=== PATIENT | male | born 1955 | race Caucasian/White ===

== ENCOUNTER 2025-01-24 10:07 | Outpatient (CLI) | payer MEDICARE, SELFPAY ==
--- NOTE | 2025-01-24 10:15 | CRLHL7_ITS ---
For Patients: As a result of the Century Cures Act, medical imaging exams and procedure reports are released immediately into your electronic medical record. You may view this report before your referring provider. If you have questions, please contact your health care provider. Indication: Right hip pain Comparison: 01/14/2025 Procedure : Informed consent was obtained. The site was marked. Time-out was performed. The skin of the right hip was cleansed with ChloraPrep. A sterile drape was placed. 8 cc of 1 percent lidocaine was administered for superficial anesthesia. Subsequently a 22 gauge spinal needle was introduced into the right hip joint under intermittent fluoroscopic guidance. Injection of 2 cc nonionic Omnipaque 240 contrast confirmed intra-articular location. Subsequently 7 cc 1 percent lidocaine and 2 cc 40 milligram/cc Depo-Medrol then injected into the right hip joint. The needle was removed and hemostasis achieved with direct pressure. A dressing was placed. The patient tolerated the procedure well without immediate complication. Total fluoroscopy time 35 seconds. Impression: Successful fluoroscopically guided right hip injection with 80 milligrams of Depo-Medrol. Dictated by Alex Fu MD @ 01/24/2025 11:20:24 AM (Electronically Signed)
--- OUTSIDE RECORDS SUMMARY | 2025-01-25 00:51 | XMS_ITS | Clinical Summary ---
Author Organization [facility] Address [address] [place] [address] Care Team Providers Care Management Accounts Manager Name Role Phone Corby Sandoval MD Primary Care Provider Allergies Active Allergy Reactions Criticality Noted Date Comments Hydrochlorothiazide Hyponatremia 06/13/2019 Medications triamcinolone 0.5% (ARISTOCORT) 0.5 % creamIndications :Dyshidrotic eczema Apply topically to affected area(s) two times daily. 30 g 4 2 Active lisinopriL (PRINIVIL; ZESTRIL) 40 mg tabletIndication s:HTN (hypertension),E ssential hypertension Take 1 Tablet (40 mg) by mouth once daily. 90 Tablet 3 4 Active lovastatin (MEVACOR) 40 mg tabletIndication s:HTN (hypertension),E ssential hypertension Take 2 Tablets (80 mg) by mouth at bedtime. 180 Tablet 3 4 Active metoprolol succinate (TOPROL XL) 50 mg sustained-releas e tabletIndication s:HTN (hypertension) Take 1 Tablet (50 mg) by mouth once daily. 90 Tablet 3 4 Active sildenafil citrate (VIAGRA) 100 mg tabletIndication s:Essential hypertension,Ere ctile dysfunction, unspecified erectile dysfunction type TAKE 1 TABLET BY MOUTH ONCE DAILY IF NEEDED FOR ERECTILE DYSFUNCTION TAKE 30 MINUTES TO 4 HOURS BEFORE SEXUAL ACTIVITY MAX 100MG PER DAY 10 Tablet 6 4 Active amLODIPine (NORVASC) 10 mg tabletIndication s:HTN (hypertension) Take 1 Tablet (10 mg) by mouth once daily. 90 Tablet 3 5 Active Active Problems Problem Noted Date Diagnosed Date Obesity, morbid 07/02/2022 AAA (abdominal aortic aneurysm) 06/07/2021 Overview (07/05/2021): 3.1 cm repeat Ultrasound ini 3 years. Colon polyps 03/20/2013 Unspecified essential hypertension 04/13/2007 Other and unspecified hyperlipidemia 04/13/2007 Prostate CA Prostate CA Family history of colonic polyps Immunizations Immunization Administration Dates Next Due COVID-19 VACCINE SPIKEVAX (M ODERNA 50MCG/0.5ML) 12YO+ PFS 08/06/2024,08/15/2023 COVID-19 vaccine ([employer] NTech 30mcg/0.3mL) 12YO+ BIVALENT PF, MDV 06/27/2022 COVID-19 vaccine ([employer] NTech 30mcg/0.3mL) PF, MDV 06/22/2021 Influenza RIV4 (Age 18+ Years) PRESERV FREE 05/07 Influenza, IIV4 05/13/2020 Influenza, Inactivated AIIV4 (Age 65+ Years) Preserv Free 08/15/2023,06/27/2022,06/22/2021 Influenza, Inactivated IIV3 (Age 65+ Years) Preserv Free 08/06/2024 Pneumococcal Conj 20-valent (Prevnar 20) 024 Pneumococcal conj 13-Valent (Prevnar 13) 021 Td (Age >=7 Years) 11/08/1993 Tdap 07/14/2017,04/13/2007 Zoster (Shingrix-RZV, recombinant) 07/13/2020, Zoster (Zostavax-ZVL, live) 07/13/2016 Family History Medical History Relation Name Comments Cancer Brother Cancer-prostate Father in his 70's Heart Disease Father Hypertension Father Stroke Maternal Grandmother Osteoporosis Mother Stroke Mother Heart Disease Paternal Uncle Relation Name Status Comments Brother Father Maternal Grandmother Mother Paternal Uncle Social History Tobacco Use Types Packs/Day Years Used Date Smoking Tobacco: Former Cigarettes 1 20 0 01/29/1986 - 01/29/2006 Smokeless Tobacco: Former Chew Tobacco Cessation:Counseling Given: Not Answered Alcohol Use Standard Drinks/Week Comments Yes 0 (1 standard drink = 0.6 oz pur e alcohol) weekends PHQ-2 Answer Date Recorded PHQ-2 TOTAL SCORE 0 08/06/2024 Social Connections Answer Date Recorded Do you often feel lonely or isolated from those around you? 0 08/27/2024 Financial Resource Strain Answer Date R ecorded Difficulty of Paying Living Expenses 3 08/27/2024 Difficulty of Paying Living Expenses Not on file 08/27/2024 Food Insecurity Answer Date Recorded Do you worry your food will run out before you are able to buy more? 1 08/27/2024 Transportation Needs Answer Date Record ed Does lack of transportation keep you from medica l appointments? 1 08/27/2024 Does lack of transportation keep you from work, meetings or getting things that you need? 1 08/27/2024 Housing Stability Answer Date Recorded What is your housing situation today? 1 08/27/2024 Interpersonal Safety Answer Date Record ed Are you being hit, kicked, p ushed or yelled at (see row info)? No 08/26/2024 Interpersonal Safety Abuse 12 - 18 Not on file 08/26/2024 Interpersonal Safety Ambulatory Vulnerability No t on file 08/26/2024 Utilities Answer Date Recorded Do you have trouble paying f or utilities (for example, heat, electricity, water, phone)? 1 08/27/2024 Sex and Gender Information Value Date Recorded Sex Assigned at Not on file Legal Sex Male 5:23 AM PRACTICE CLINICIAN Gender Identity Not on file Sexual Orientation Not on file Occupation Industry Job Start Date Job End Date Not on file Not on file Not on file Not on file Obstetrics History Last Filed Vital Signs Vital Sign Reading Time Taken Comments Blood Pressure 162/88 08/28/2024 11:26 AM PRACTICE CLINICIAN Pulse 60 08/28/2024 11:24 AM PRACTICE CLINICIAN Temperature 36.8 C (98.3 F) 08/28/2024 11:24 AM PRACTICE CLINICIAN Respiratory Rate 16 08/26/2024 6:43 PM PRACTICE CLINICIAN Oxygen Saturation 97% 08/28/2024 11:24 AM PRACTICE CLINICIAN Inhaled Oxygen Concentration - - Weight 118.4 kg (261 lb) 08/28/2024 11:24 AM PRACTICE CLINICIAN Height 170.2 cm (5' 7) 08/28/2024 11:24 AM PRACTICE CLINICIAN Body Mass Index 40.88 08/28/2024 11:24 AM PRACTICE CLINICIAN Plan of Treatment Health Maintenance Due Date Last Done Comments RSV vaccine for adults or (1 - Risk 60-74 years 1-dose series) 2016 COVID-19 vaccine series ( season) 2025 08/06/2024, 08/15/2023, 06/27/2022, Additional history exists Depression screening for age 12+ 08/06/2025 08/06/2024, 08/15/2023, 06/27/2022, Additional history exists Medicare Wellness for age 65+ 08/07/2025 08/06/2024 BMI (ht and wt on same day) for age 18+ 08/28/2025 08/28/2024, 08/06/2024, 08/15/2023, Additional history exists Tetanus booster 07/14/2027 07/14/2017, 02/2007, 11/08/1993 Colonoscopy through age 75 05/31/202805/31, 06/13/2018, 06/06/2013, Additional history exists Lipids for age 45-75 08/06/2029 08/06/2024, 08/15/2023, 06/27/2022, Additional history exists Hepatitis C screening for age 18-79 Completed 07/23/2013 Tdap Completed 07/14/2017, 04/13/2007 Zoster (shingles) series for age 50+ Completed 07/13/2020, 05/13/2020, 07/13/2016 AAA screening age 65-74 Completed 06/30/2021 Pneumococcal series for age 50+ Completed 08/15/2023, 06/22/2021 Influenza Vaccine Completed 08/06/2024, , 06/27/2022, Additional history exists Hepatitis B series for 19+ Aged Out N o longer eligible based on patient's age to complete this topic Procedures Procedure Name Priority Date/Time Associated Diagnosis Comments LIPID PANEL W REFLEX MEASURED LDL Routine 08/06/2024 3:03 PM PRACTICE CLINICIAN Mixed hyperlipidemia COLONOSCOPY 05/31/2023 10:29 AM CDT US ABD AORTA SCREENING Routine 06/30/2021 8:10 AM PRACTICE CLINICIAN Screening for AAA (abdominal aortic aneurysm) ANTI HCV Routine 07/23/2013 9:11 AM PRACTICE CLINICIAN Need for hepatitis C screening test from Last 3 Months or Most Recently Relevant to Health Maintenance Results * (ABNORMAL) LIPID PANEL W REFLEX MEASURED LDL (08/06/2024 3:03 PM PRACTICE CLINICIAN) CHOLESTEROL, TOTAL 193 <200 mg/dL [facility] HDL CHOLESTEROL 65 > OR = 40 mg/dL [facility] TRIGLYCERIDES 116 <150 mg/dL [facility] LDL-CHOLESTEROL 107(H) mg/dL (calc) [facility] Comment: Reference range: <100 Desirable range <100 mg/dL for primary prevention; <70 mg/dL for patients with CHD or diabetic patients with > or = 2 CHD risk factors. LDL-C is now calculated using the Elder-Kumar calculation, which is a validated novel method providing better accuracy than the Friedewald equation in the estimation of LDL-C. Elder SS et al. BRIAN. 2013;310(19): 2631-4751 (http://education.Set.fm/faq/SVF696) CHOL/HDLC RATIO 3.0 <5.0 (calc) [facility] NON HDL CHOLESTEROL 128 <130 mg/dL (calc) [facility] Comment: For patients with diabetes plus 1 major ASCVD risk factor, treating to a non-HDL-C goal of <100 mg/dL (LDL-C of <70 mg/dL) is considered a therapeutic option. Blood BLOOD SPECIMEN / Unknown 08/06/2024 3:03 PM PRACTICE CLINICIAN 08/06/2024 3:03 PM PRACTICE CLINICIAN Narrative [facility] - 08/07/2024 3:50 AM PRACTICE CLINICIAN FASTING:YES FASTING: YES us Corby Sandoval MD CHEMISTRY Final R esult Electron Database [facility] [address] [place] [address], [facility] [address] [place] [address] * COLONOSCOPY (05/31/2023 10:29 AM CDT) 05/31/2023 10:2 9 AM CDT Narrative Transcriptions Opal Culver DO - 05/31/2023 3:08 PM CDT Patient Name: Arnel Hammond Procedure Date: 05/31/2023 Gender: Male Date of : 1955 Admit Type: Ambulatory Procedure: Colonoscopy Proceduralist: Opal Culver MD Referring MD: Corby Sandoval MD Indications/Pre-Op Diagnosis: High risk colon cancer surveillance:Personal history of colonic polyps Medications: Propofol per Anesthesia, MonitoredAnesthesia Care Procedure Description: The patient had risks, benefits and alternatives explained to andgave informed consent. The patient had a stable cardiopulmonary status and judged an adequate candidate for conscious sedation. The endoscope [id number] was passed through the anus andadvanced to the cecum, identified by appendiceal orifice and ileocecal valve.The colonoscopy was performed without difficulty. The patient toleratedthe procedure well. The quality of the bowel preparation was excellent.The ileocecal valve, appendiceal orifice, and rectum were photographed. Complications: No immediate complications. Estimated blood loss: Minimal. Estimated Blood Loss & Specimen: Estimated blood loss was minimal. Specimen collected - Yes and sent to Laboratory Findings: Hemorrhoids were found on perianal exam. A 3 mm polyp was found in the descending colon. The polyp wassessile. The polyp was removed with a hot biopsy forceps. Resection andretrieval were complete. Verification of patient identification for thespecimen was done. Estimated blood loss was minimal. A 7 mm polyp was found in the sigmoid colon. The polyp wassemi-sessile. The polyp was removed with a hot snare. Resection and retrieval were complete. Verification of patient identification for the specimen was done. Estimated blood loss was minimal. A 4 mm polyp was found in the recto-sigmoid colon. The polyp was sessile. The polyp was removed with a hot biopsy forceps. Resectionand retrieval were complete. Verification of patient identification forthe specimen was done. Estimated blood loss was minimal. A few medium-mouthed and small-mouthed diverticula were found in the sigmoid colon. Non-bleeding internal hemorrhoids were found during endoscopy. The hemorrhoids were mild and Grade II (internal hemorrhoids thatprolapse but reduce spontaneously). The exam was otherwise without abnormality. Impressions/Post-Op Diagnosis: - Hemorrhoids found on perianal exam. - One 3 mm polyp in the descending colon, removed with a hot biopsy forceps. Resected and retrieved. - One 7 mm polyp in the sigmoid colon, removed with a hot snare. Resected and retrieved. - One 4 mm polyp at the recto-sigmoid colon, removed with a hotbiopsy forceps. Resected and retrieved. - Diverticulosis in the sigmoid colon. - Non-bleeding internal hemorrhoids. - The examination was otherwise normal. Recommendation: - Patient has a contact number available for emergencies. The signsand symptoms of potential delayed complications were discussed with the patient. Return to normal activities tomorrow. Written discharge instructions were provided to the patient. - Discharge patient to home (ambulatory). - Resume previous diet. - Continue present medications. - Await pathology results. - Repeat colonoscopy in 5 years for surveillance based on pathology results. Opal Culver MD 05/31/2023 3:08:12 PM This report has been signed electronically. Note Initiated On: 05/31/2023 10:29 AM us Opal Culver DO PROCEDURE ORD Final Res ult * US ABD AORTA SCREENING [[id number]] (06/30/2021 8:10 AM PRACTICE CLINICIAN) Anatomical Region Laterality Modality Abdomen, AORTA Ultrasound Impressions 06/30/2021 1:41 PM PRACTICE CLINICIAN Suprarenal abdominal aortic aneurysm measuring up to 3.1 cm. Chidi Navarro M.D. [email or web address] VBA/pjt / Narrative 06/30/2021 1:41 PM PRACTICE CLINICIAN For Patients: As a result of the Cures Act, medical imaging exams and procedure reports are released immediately into your electronic medical record. You may view this report before your referring provider. If you have questions, please contact your health care provider. ULTRASOUND ABDOMINAL AORTA, 06/30/2021 CLINICAL HISTORY: Abdominal aortic aneurysm screening. COMPARISON: None available. TECHNIQUE: The abdominal aorta and iliac arteries were examined with morocho-scale ultrasound, color flow and Doppler spectral analysis. Bypass grafts and stents may be evaluated per exam specific protocol. Vessel size, peak systolic velocity (PSV) and velocity ratios if applicable, were obtained and documented at sites per exam specific protocol. FINDINGS: Location AP (cm) W (cm) Aorta Upper AP 2.9 3.1 Mid AP 2.6 2.7 Lower AP 2.1 2.2 Iliacs Right AP 1.7 1.5 Left AP 1.5 1.6 Mild suprarenal abdominal aortic aneurysm measuring up to 3.1 cm. us Corby Sandoval MD US Final R esult * ANTI HCV [[id number]] (07/23/2013 9:11 AM PRACTICE CLINICIAN) ANTI HCV Non-reacti ve [facility] Blood specimen (specimen) BLOOD SPECIMEN / Unknown 07/23/2013 9:11 AM PRACTICE CLINICIAN 07/23/2013 9:03 AM PRACTICE CLINICIAN Corby Sandoval MD SEND OUTS Final R esult [facility] INTERNAL ZIP [id number] [place] [id number] from Last 3 Months or Most Recently Relevant to Health Maintenance Insurance MEDICA CHOICE MEDICARE PART A HB ONLY [facility] Advance Directives * Full Code (Latest Code Status on File) Date Activated Date Inactivated Comments 05/31/2023 9:50 AM 05/31/2023 3:22 PM Question Answer Comments Code Status Discussion: Discussed Care Teams Management Accounts Manager Relationship Specialty Start Date End Date Corby Sandoval MD [address] [place] [address] PCP - General Family Practice 04/03/15
== END 2025-01-24 10:08 | disposition home or self-care (01) ==
LOC: RAD 10:08
PROVIDERS: PCP Family Medicine; Visit Provider Orthopaedic Surgery Sports Medicine
DX: M25.551 Pain in right hip (principal)
CPT/HCPCS: 20610; 77002; Q9966

== ENCOUNTER 2025-02-05 14:31 | Outpatient (CLI) | payer MEDICARE, SELFPAY ==
--- NOTE | 2025-02-05 14:45 | MR_ITS ---
[address] [address] Phone:?[phone] Fax:?[phone] Referring Physician Information: Liya Mark [address] [facility] [address] Phone:?[phone] Fax:?[phone] Patient:Jose Hammond D.O.B:?1955 Sex:?Male Phone:?[phone] [facility] MRN:?[id number] Exam Date:?02/05/2025 EXAM: MRI of the RIGHT HIP, without contrast CLINICAL HISTORY: Chronic right hip pain. Unilateral primary osteoarthritis of the right hip. History of recent right hip injection. Evaluate for infection source. COMPARISONS: Plain radiographs 01/28/2025 and 01/14/2025. TECHNICAL: MR sequences of the right hip: Axials: PD FS Axial oblique: PD Coronals: PD, T2 Coronal pelvis: T1 and STIR Sagittals: PD and T2 CONTRAST: None SEDATION: None FINDINGS: Pelvis osseous structures: Sacrum: No fracture or destructive osseous lesion is seen of the imaged portions of the sacrum. Sacroiliac joints: A small focus of subchondral edema-like signal within the right sacral ala adjacent to the anteroinferior portion of the right sacroiliac joint may be degenerative in etiology but is nonspecific. Pubic rami: Unremarkable. Symphysis pubis: Degenerative tearing of the fibrocartilaginous disc of the symphysis pubis. Labrum: Tearing of the entire right hip labrum. Hip joint: Moderate right hip joint effusion with substantial synovitis. Extensive near full-thickness and full-thickness chondral loss over most of the humeral head and acetabulum with subchondral edema-like signal throughout the right acetabulum. Proximal femur: No fracture, avascular necrosis, or destructive osseous lesion. Acetabulum: Ligamentum teres: Unremarkable. Myotendinous structures: Gluteus abductors: The gluteus minimus and medius tendons are unremarkable. Rectus abdominis-adductor longus aponeurosis, adductors, and rectus abdominis: Not optimally evaluated because of suboptimal [id number]. Hamstrings: Unremarkable. Flexors: No tear is seen although evaluation is suboptimal because of suboptimal [id number]. Quadratus femoris muscle: Unremarkable. Piriformis muscle: Unremarkable. Gluteal aponeurotic fascia and IT band: Unremarkable. Pelvic soft tissues: Unremarkable. IMPRESSION: 1. Marked right hip osteoarthritis with extensive near full-thickness and full- thickness chondral loss throughout the right hip joint and subchondral edema- like signal throughout the right acetabulum. Tearing of the entire right hip labrum. 2. Moderate right hip joint effusion with substantial synovitis. Infection/septic arthritis is in the imaging differential given clinical concern for infection. Aspiration could be pursued if clinically appropriate. 3. A small focus of subchondral edema-like signal within the right sacral ala adjacent to the anteroinferior portion of the right sacroiliac joint may be degenerative in etiology but is nonspecific. RCB Electronically signed on 02/06/2025 8:07:00 AM by Buzz Mujica M.D.
== END 2025-02-05 14:32 | disposition home or self-care (01) ==
LOC: MRI 14:31
PROVIDERS: PCP Family Medicine; Visit Provider Physician Assistant Surgical
DX: M25.551 Pain in right hip (principal); M16.11 Unilateral primary osteoarthritis, right hip; M25.451 Effusion, right hip
CPT/HCPCS: 73721

== ENCOUNTER 2025-02-10 07:58 | Outpatient (CLI) | payer MEDICARE, SELFPAY ==
--- NOTE | 2025-02-10 08:15 | CRLHL7_ITS ---
For Patients: As a result of the Century Cures Act, medical imaging exams and procedure reports are released immediately into your electronic medical record. You may view this report before your referring provider. If you have questions, please contact your health care provider. Indication: PAIN IN RIGHT HIP, EVAL FOR SEPTIC RIGHT HIP JOINT Comparison: MRI 02/05/2025, x-rays 01/28/2025 and 01/14/2025, arthrogram injection 01/24/2025 Procedure : Informed consent was obtained. The site was marked. Time-out was performed. The skin of the right hip was cleansed with ChloraPrep. A sterile drape was placed. 8 cc of 1 percent lidocaine was administered for superficial anesthesia. Subsequently a 22 gauge spinal needle was introduced into the right hip joint under intermittent fluoroscopic guidance. 2 cc synovial fluid removed and sent to the lab. The patient tolerated the procedure well without immediate complication. Total fluoroscopy time 15 seconds. Impression: Successful fluoroscopically guided right hip aspiration with 2 cc of fluid sent to the lab. Dictated by Alex Fu MD @ 02/10/2025 11:28:19 AM (Electronically Signed)
[2025-02-10 09:34] LABS: Mononuclear WBC Body Fluid* 79 %; Polynuclear WBC Body Fluid* 21 %; RBC, Body Fluid* 1000 Cells/uL; WBC, Body Fluid* 159 Cells/uL
[2025-02-10 09:37] LABS: BF Clarity* Slightly Cloudy; BF Total Volume* 0.80
== END 2025-02-10 07:59 | disposition home or self-care (01) ==
PROVIDERS: PCP Family Medicine; Visit Provider Physician Assistant Surgical
DX: M25.551 Pain in right hip (principal); M16.11 Unilateral primary osteoarthritis, right hip
CPT/HCPCS: 20610; 77002; 87070; 87205; 89051; Q9966

== ENCOUNTER 2025-04-30 06:00 | Day surgery (SDC) | payer MEDICARE, SELFPAY ==
[2025-04-30] VITALS (19 sets, daily range): BP systolic 114–181; BP diastolic 61–83; PULSE 46–66; RESP 12–16; TEMP 36.3–36.8; O2SAT 95–100; BMI 42.3
[2025-04-30] MEDS: LACTATED RINGERS 1000 ML 1,000 ML 100 ML IV ×2 (06:43→08:06)
[2025-04-30] MEDS: SODIUM CHLORIDE 0.9 % (FLUSH) 10 ML SYRINGE IVF (06:43)
[2025-04-30] MEDS: OXYCODONE (CR) 10 MG TAB.ER.12H PO (06:52)
[2025-04-30] MEDS: ACETAMINOPHEN 500 MG TABLET 1000 MG PO (06:52)
--- NOTE | 2025-04-30 06:59 | W.PM.H&PU ---
History & Physical Update History & Physical Update H&P Reviewed and patient assessed: No changes noted
[2025-04-30] MEDS: MIDAZOLAM HCL 1 MG/ML inj IVP (07:10)
--- NOTE | 2025-04-30 07:13 | SUR.PREOP ---
TIME?OUT:?0709 PT/RN/MDA?VERIFICATION?OF?SURGICAL?SITE,?PROCEDURE,?AND?CONSENT OBTAINED?PRIOR?TO?INVASIVE?PROCEDURE. all in agreement
--- NOTE | 2025-04-30 07:15 | CRLHL7_ITS ---
For Patients: As a result of the Century Cures Act, medical imaging exams and procedure reports are released immediately into your electronic medical record. You may view this report before your referring provider. If you have questions, please contact your health care provider. Indication: Right hip arthroplasty. Technique: Procedural fluoroscopy. One image saved. Fluoro time: 45 seconds Comparison: None. Findings/Impression: Image shows placement of right hip arthroplasty. No acute complication visible. Dictated by Dionte Paz MD @ 05/02/2025 10:02:10 AM (Electronically Signed)
[2025-04-30] MEDS: TRANEXAMIC ACID 100 MG/ML INJ 1000 MG IV (07:34)
--- NOTE | 2025-04-30 09:16 | PM.ORPRC ---
Procedure Note Date of procedure: 04/30/25 Procedure: PREOPERATIVE DIAGNOSIS: 1. Right hip osteoarthritis, severe, primary POSTOPERATIVE DIAGNOSIS: 1. Right hip osteoarthritis, severe, primary PROCEDURE: 1. Right total hip arthroplasty-anterior approach 2. 22895 - intraoperative fluoroscopy up to 1 hour. SURGEON: Mark Quezada MD. NATURAL GAS TECHNICIAN: Eliecer Diaz PA-C; ZENOBIA Zaldivar - Of note, a skilled malt specifications control assistant was critical for this case to aid in patient positioning, tissue retraction, limb manipulation/positioning, and closure. ANESTHESIA: General endotracheal anesthetic EBL: 400 mL IMPLANTS: DePuy J&J uncemented total hip Hernando cup size 56, hole eliminator, +4 neutral liner Actis stem, standard offset, size 6 +1.5 mm ceramic 36 mm head COMPLICATIONS: None evident INDICATIONS: The patient is a pleasant 70-year-old male who has experienced severe right hip pain and difficulty bearing weight. Workup included x-rays which revealed severe osteoarthrosis in the hip. Given the deformity, the dysfunction, and the pain, as well as the failure of nonoperative management, recommendation was made for surgery. FINDINGS: Full-thickness chondral loss diffusely throughout the femoral head. Also acetabulum. Osteophytes around the perimeter of the femoral head/neck junction and to a lesser degree acetabulum. Moderate effusion upon entering the joint. DESCRIPTION OF PROCEDURE: Following a thorough discussion of risks, benefits, and alternatives consent was obtained and the right hip was marked. The patient was brought to the operating room and placed supine on the operating table. Induction of anesthesia was undertaken. 3 g IV Ancef and 1 g tranexamic acid was administered within 1 hr of incision preoperatively. Proper time-out was performed identifying proper patient, site, procedure. The operative extremity was prepped and draped in the appropriate sterile fashion using ChloraPrep after the patient was positioned on the [place] table with head in neutral alignment and all bony prominences well padded. C-arm fluoroscopic imaging was utilized to confirm proper pelvis rotation and position, and to get true AP films of both the contralateral left, and the affected right hip. This is for comparison. A longitudinal incision was made starting approximately 1 cm distal to the ASIS, and 2-3 cm lateral. The incision was extended distally aiming toward the fibular head. Sharp incision through skin and bovie cautery through the subcutaneous tissue allowed identification of the TFL fascia. This was sharply divided, and the fascia bluntly released from the muscle fibers as we dissected medial. Upon coming to the medial border, we were able to retract the TFL laterally, and penetrated the deeper fascia and identify the crossing circumflex vessels. These were ligated/cauterized. The rectus was elevated from the capsule, and retractors placed laterally and medially along the femoral neck to help with visualization of the capsule. We then performed an inverted T capsulotomy. The capsule was tagged for later repair. Retractors were placed inside the capsule. The femoral neck was visualized after releasing medially down to the lesser trochanter, along the saddle laterally, and up onto the acetabulum. The femoral neck cut was made in line with our preoperative templating. The head was removed in a single piece, and sized. We turned our attention to acetabular preparation. Initially, the labrum was resected from around the perimeter, the pulvinar was excised, allowing us to visualize the false wall. We started the reaming with a 43 mm reamer. This was medialized down to the true wall. We then enlarged our reamers sequentially up to one size less than the selected cup size. We trialed at the same size and found it to have an excellent fit. The selected cup was then opened, inserted, and impacted in line with the goal of 40? of abduction, and 20-25? of anteversion. This was confirmed on C-arm fluoroscopic imaging to be in the appropriate/goal position. Once the cup was placed we placed a hole eliminator and a liner consistent with preop planning. Attention was turned to the femoral preparation. The limb was extended, externally rotated, and adducted. The posteromedial capsule was released, as retractors were placed allowing excellent access to the proximal femur. Initially a experimental box tester was followed by canal finder followed by various broaches. We broached sequentially up to the size noted above, found it to have excellent rotational control, and trialing various heads and necks, revealed that appropriate neck offset, and the above noted head size provided the greatest stability, and zoroastrian of length, and offset. C-arm fluoroscopic imaging confirmed position of the stem, as well as leg lengths, which were compared with the pre procedure all fluoroscopic images. Trial implants were removed, the real femoral stem inserted, as was the appropriate head. After reducing, the leg was placed through range of motion and stability was confirmed anterior, posterior, and lateral. A 3 min Betadine soak was then performed, and thorough irrigation with normal saline followed. Closure of the capsule was performed with #1 PDS. Bleeding was confirmed to be controlled at this stage, and the TFL fascia was closed with #0 strata fix. Subcutaneous, and subcuticular closure was performed with 2-0 Stratafix and 4-0 Stratafix, respectively. Dressings were applied, and the patient was awoken from anesthesia and transferred the PACU in stable condition. A skilled malt specifications control assistant was critical for this case to aid in patient positioning, tissue retraction, acetabular and proximal femoral exposure, limb manipulation/positioning, dislocation/relocation, patient safety, and closure. PLAN: 1. Weight bear as tolerated operative extremity. 2. 23 hr perioperative antibiotics. 3. Ice. 4. PT/OT consults for ambulation assistance/mobility education. 5. Social work consult for discharge planning. 6. DVT prophylaxis with at SCDs and Xarelto x5 days followed by aspirin for a total of 1 month.
--- NOTE | 2025-04-30 10:05 | P.ANES_ITS ---
Anesthesia Charges Start Date/Time Anesthesia Start Date: 04/30/25 Anesthesia Start Time: 07:17 Stop Date/Time Anesthesia Stop Date: 04/30/25 Anesthesia Stop Time: 10:07 Coding CPT Codes CPT Codes: ANESTH HIP ARTHROPLASTY - 30289 ([id number]) P3 - PATIENT W/SEVERE SYS DISEASE, QK - MERCHANDISE PRESENTATION ASSOCIATE 2-4 CNCRNT ANES PROC, QX - SYSTEMS QA ANALYST SVC W/ MD MED DIRECTION
--- NOTE | 2025-04-30 10:05 | W.ANESCHARGE ---
Anesthesia Charges Start Date/Time Anesthesia Start Date: 04/30/25 Anesthesia Start Time: 07:17 Stop Date/Time Anesthesia Stop Date: 04/30/25 Anesthesia Stop Time: 10:07 Coding CPT Codes CPT Codes: ANESTH HIP ARTHROPLASTY - 14519 ([id number]) P3 - PATIENT W/SEVERE SYS DISEASE, QK - QUARTZ MOUNTER 2-4 CNCRNT ANES PROC, QX - RADIOSONDE SPECIALIST SVC W/ MD MED DIRECTION
--- NOTE | 2025-04-30 10:06 | CRLHL7_ITS ---
For Patients: As a result of the Cures Act, medical imaging exams and procedure reports are released immediately into your electronic medical record. You may view this report before your referring provider. If you have questions, please contact your health care provider. Indication: Postop Technique: AP hip centered to pelvis and lateral view right hip Findings/Impression: Hardware from a right total hip arthroplasty is in satisfactory position. Bone alignment is normal. No sign of acute fracture. Postop changes are within normal limits. Dictated by Alex Fu MD @ 05/02/2025 12:34:10 PM (Electronically Signed)
[2025-04-30] MEDS: LACTATED RINGERS 1000 ML 1,000 ML 50 ML IV (11:35)
--- NOTE | 2025-04-30 12:32 | P.NB_ITS ---
Nerve Block Nerve Block Time Seen by Provider: 07:10 Date Seen: 04/30/25 Type of block requested by surgeon for post-operative analgesia: RONY/LFCN Side: right Time out performed: Yes Verification of patient name: Yes Verification of date of : Yes Site marking: site marked Name of person performing procedure: Al Continuous monitoring Was continuous monitoring of O2 sat, B/P, vehicle monitor technician, recorded every 15 minutes?: Yes Procedure Checklist: sterile prep, needles and gloves Ultrasound guided. Images saved: Yes Medications given in 5ml increments after negative aspiration: Ropivicaine %: 0.5 mL: 30 Needle gauge: 20 Precedex (mcg): 25 Patient tolerated procedure well: Yes Additional comments: Needle noted below psoas tendon needle noted adjacent to LFCN Block Charges Block Charge (with Pro Fee): Other Periph Nerve Block Use of Ultrasound Machine for Block: Yes- US Guidance/pain block
--- NOTE | 2025-04-30 12:33 | P.ANES_ITS ---
Anesthesia Charges Start Date/Time Anesthesia Start Date: 04/30/25 Anesthesia Start Time: 07:17 Stop Date/Time Anesthesia Stop Date: 04/30/25 Anesthesia Stop Time: 10:07 Coding CPT Codes CPT Codes: ANESTH HIP ARTHROPLASTY - 35069 ([id number]) QK - COATING MIXER SUPERVISOR 2-4 CNCRNT ANES PROC, QX - DISPATCHER MAINTENANCE SERVICE SVC W/ MD MED DIRECTION, P3 - PATIENT W/SEVERE SYS DISEASE
--- NOTE | 2025-04-30 12:33 | W.ANESCHARGE ---
Anesthesia Charges Start Date/Time Anesthesia Start Date: 04/30/25 Anesthesia Start Time: 07:17 Stop Date/Time Anesthesia Stop Date: 04/30/25 Anesthesia Stop Time: 10:07 Coding CPT Codes CPT Codes: ANESTH HIP ARTHROPLASTY - 39757 ([id number]) QK - HEALTH CARE MARKETING MANAGER 2-4 CNCRNT ANES PROC, QX - CLINICAL INFORMATICIST SVC W/ MD MED DIRECTION, P3 - PATIENT W/SEVERE SYS DISEASE
[2025-04-30] MEDS: IBUPROFEN 200 MG TABLET 600 MG PO (12:40)
== END 2025-04-30 14:44 | disposition home or self-care (01) ==
LOC: OR 06:01 → MEDSURG 07:31
PROVIDERS: PCP Family Medicine; Visit Provider Orthopaedic Surgery Sports Medicine
PROC: (CPT 27130; principal; 2025-04-30 07:15)
DX: M16.11 Unilateral primary osteoarthritis, right hip (principal); G89.18 Other acute postprocedural pain
CPT/HCPCS: 27130; 01214; 36415; 64450; 73501; 76942; 86850; 86900; 86901; 97110; 97116; 97161; 97165; 97535; A9270; C1776; J0330; J0690; J1100; J1171; J2250; J2405; J2704; J2795; J3010; J3475; J3490; J7120